=== PATIENT | female | born 1965 | race Caucasian/White ===

== ENCOUNTER 2017-06-26 08:59 | Emergency (ER) | payer BC ==
[2017-06-26 09:16] VITALS: BP 112/78
--- NOTE | 2017-06-26 09:25 | UC ---
Upper Extremity HPI - HPI Summary HPI Summary: Pt here w/ RIGHT elbow and Right shoulder pain from yesterday. Denies any injury to elbow/soulder. States she was putting on her backpack when heard a "pop" in R elbow. States she's now having pain in R elbow radiating to R shoulder. Pain worse w/ movement. Iced elbow w/ some pain relief. [ End ] - History of Current Complaint Chief Complaint: UCUpperExtremity Stated Complaint: RT ELBOW Time Seen by Provider: 06/26/17 09:23 Hx Obtained From: Patient Onset/Duration: Sudden Onset Location Of Pain: Is Diffuse Character: Sharp Aggravating Factor(s): Movement Alleviating Factor(s): Rest Associated Signs And Symptoms: Positive: Swelling - Allergies/Home Medications Allergies/Adverse Reactions: Allergies Allergy/AdvReac Type Severity Reaction Status Date / Time Tetanus Toxoid Allergy Unknown Unknown Verified 06/26/17 09:07 Reaction Details Bee Venom Allergy Shortness Verified 06/26/17 09:07 of Breath, Swelling PMH/Surg Hx/FS Hx/Imm Hx Previously Healthy: Yes - Surgical History Surgical History: Yes Surgery Procedure, Year, and Place: Hysterectomy. R TKA--10/20/15. BUNIONECTOMY. ARTHROSCOPIC R KNEE. REMOVAL OF CALCIFICATIONS FOOT - Family History Known Family History: Positive: None - Social History Occupation: Employed Full-time - teacher Lives: With Family Alcohol Use: Occasionally Substance Use Type: None Smoking Status (MU): Never Smoked Tobacco When Did the Patient Quit Smoking/Using Tobacco: 30 YRS AGO - Immunization History Most Recent Influenza Vaccination: None 2015 Review of Systems Musculoskeletal: Arthralgia, Decreased ROM All Other Systems Reviewed And Are Negative: Yes Physical Exam Triage Information Reviewed: Yes Appearance: Well-Appearing, No Pain Distress, Well-Nourished Vital Signs: Initial Vital Signs Temp 97.5 F 06/26/17 09:08 Pulse 65 06/26/17 09:08 Resp 18 06/26/17 09:08 BP 112/78 06/26/17 09:08 Pulse Ox 98 06/26/17 09:08 Vital Signs Reviewed: Yes Eye Exam: Normal ENT Exam: Normal Dental Exam: Normal Neck exam: Normal Neck: Positive: 1 Respiratory Exam: Normal Cardiovascular Exam: Normal Musculoskeletal: Positive: Strength Intact, ROM Limited @ - moderate pain lateral epicondyle to pronation and with forced pronation. mild discomfort with supination but mild and has FROM for supination . shoulder exam WNL/ FROM and right exam WNL/ FROM and full strength with flexion and extension. hand strength 5/5. medial epicondyle normal and non tender., Edema @ - right lateral epicondyle Neurological Exam: Normal Psychological Exam: Normal Skin Exam: Normal Upper Extremity Course/Dx - Course Course Of Treatment: strength and ROM essentially intact. no trauma but as the elbow was in full flexion when she moved back pack in arm and it may be partially torn . advised rest for today, ice for the 1st 48 hours and NSAIDs / APAP. Dylan bandage at this time for supportive care. if Sx persist or worsen then go to Ortho and she is agreeable - Differential Dx/Diagnosis Differential Diagnosis/HQI/PQRI: Fracture (Closed), Nursemaid's Elbow, Strain, Sprain Provider Diagnoses: lateral epicondylitis / elbow strain Discharge - Discharge Plan Condition: Good Disposition: HOME Patient Education Materials: Elbow Sprain (ED) Referrals: Alisson Richard MD [Medical Doctor] - 4 Days (If your symptoms are not improved ) CAROLINA Matta [Primary Care Provider] - If Needed
== END 2017-06-26 10:09 | disposition home or self-care (01) ==
LOC: UCCORT 08:59
DX: M77.11 Lateral epicondylitis, right elbow (principal); S46.911A Strain of unspecified muscle, fascia and tendon at shoulder and upper arm level, right arm, initial encounter; X58.XXXA Exposure to other specified factors, initial encounter; Y93.89 Activity, other specified; Y92.9 Unspecified place or not applicable; Z88.7 Allergy status to serum and vaccine; Z91.030 Bee allergy status
CPT/HCPCS: 99212; G0463

== ENCOUNTER 2018-06-23 05:53 | Inpatient (IN) | payer BC ==
[~2018-06-23 05:53] MED LIST: Buffered Lidocaine 0.9% SYRIN* 5 ML/SYR SYRINGE INTRADERM ONE
[2018-06-23] MEDS ORDERED: Famotidine IV* 10 MG/ML 2 ML (20 mg) IV ONE (06:00)
[2018-06-23] MEDS ORDERED: Dexamethasone IV* 4 MG/ML 1 ML (4 MG) IV SLOW PU ONE (06:00)
[2018-06-23] MEDS ORDERED: Famotidine IV* 10 MG/ML 2 ML (20 mg) ONE (06:10)
[2018-06-23] MEDS ORDERED: Dexamethasone IV* 4 MG/ML 1 ML (4 MG) ONE (06:10)
[2018-06-23] MEDS ORDERED: ceFAZolin 2 GM PREMIX (*) 2 GM/50 ML BAG IVPB ONE (06:10)
[2018-06-23] MEDS ORDERED: Heparin VIAL(*) 5000 UNITS/ML VIAL (FIVE THOUSAND) ONE (06:10)
[2018-06-23] MEDS ORDERED: Ropivacaine (OR use only) 2 MG/ML 10 ML ONE (07:03)
[2018-06-23] MEDS ORDERED: HYDROmorphone INJ* 0.5 MG/0.5 ML SYRINGE IV PRN ×2 (08:33→09:04)
[2018-06-23] MEDS ORDERED: fentaNYL* 50 MCG/ML 2 ML VIAL (100 MCG VIAL) IV PRN (08:33)
[2018-06-23] MEDS ORDERED: Ondansetron INJ* 2 MG/ML VIAL IV PRN ×2 (08:33→09:04)
[2018-06-23] MEDS ORDERED: DiMENhydriNATE IV* 50 MG/ML VIAL IV PUSH PRN (08:33)
[2018-06-23] MEDS ORDERED: Scopolamine 1.5 mg* PATCH TRANSDERM PRN (08:33)
[2018-06-23] MEDS ORDERED: Naloxone* 0.4 MG/ML 1 ML VIAL IV PRN (08:33)
[2018-06-23] MEDS ORDERED: diPHENhydraMINE IV* 50 MG/ML 1 ml VIAL (BENADRYL) SLOW PUSH PRN (09:04)
[2018-06-23] MEDS ORDERED: Acetaminophen ADULT LIQ* 650 MG/20.3 ML UDC PO PRN (09:04)
--- NOTE | 2018-06-23 09:09 | OP ---
Operative Report - Blank - Operative Report Date of Operation: 06/23/18 Note: Brief Operative Note Preoperative Dx: Morbid obesity. Postoperative Dx: Same. Procedure: Laparoscopic sleeve gastrectomy. Anesthesia: GET. Surgeon: MD Nathalia. Assist: MAURICIO Mcgovern and VERONA Holley. EBL: Less than 50 Fluids: 1500 LR Drains: None. Specimen: Portion of stomach. Findings: Dictated.
[2018-06-23] MEDS ORDERED: Scopolamine 1.5 mg* PATCH ONE (09:25)
[2018-06-23] MEDS ORDERED: Neostigmine Methylsulfate* 1 MG/ML 10 ML VIAL (1 mg/ml) ONE (09:49)
[2018-06-23] MEDS ORDERED: Glycopyrrolate IV* 0.2 MG/ML 1 ML VIAL ONE (09:49)
[2018-06-23] MEDS: Ketorolac INJ* 30 MG/ML 1 ML VIAL IV PRN ×2 (13:46→20:15)
--- NOTE | 2018-06-23 17:41 | PN ---
Progress Note - Progress Note Date of Service: 06/23/18 Note: Feels well. No N/V. Pain from gas. Would like to drink. Vital Signs Temp 97.5 F 06/23/18 12:39 Pulse 49 06/23/18 12:39 Resp 16 06/23/18 12:39 BP 132/74 06/23/18 12:39 Pulse Ox 94 06/23/18 12:39 NAD Abd: soft; dressings intact; min tender. Intake & Output 06/22/18 06/23/18 06/23/18 18:59 06:59 18:59 Intake Total 2950 Output Total 350 Balance 2600 Weight 220 lb Intake: IV Fluids 2950 LR 2950 Output: Urine 350 A/P: s/p LSG. Doing well postop. Will allow clears tonight.
[2018-06-23] MEDS: Famotidine IV* 10 MG/ML 2 ML (20 mg) IV SLOW PU SCH (22:06)
[2018-06-23] MEDS: Heparin VIAL(*) 5000 UNITS/ML VIAL (FIVE THOUSAND) SUBCUT SCH (22:11)
--- NOTE | 2018-06-24 02:17 | OP ---
CC: [facility]; Berta Ko MD * DATE OF OPERATION: 06/23/18 - ROOM #351 DATE OF : 65 SURGEON: Jakub Sloan MD DINING ROOM MAID: MAURICIO Sanchez ANESTHESIOLOGIST: Paul Lares MD ANESTHESIA: General endotracheal. PRE-OP DIAGNOSIS: Clinically severe obesity. POST-OP DIAGNOSIS: Clinically severe obesity. OPERATIVE PROCEDURE: Laparoscopic sleeve gastrectomy. ESTIMATED BLOOD LOSS: Minimal. IV FLUIDS: Crystalloids. SPECIMEN: Portion of stomach. DRAINS: None. COMPLICATIONS: None. COUNTS: The instrument, needle, and sponge counts were correct. DESCRIPTION OF PROCEDURE: The patient was brought to the operating room and placed on the table supine. Sequential compression devices were placed in both lower extremities. General anesthesia was administered. The abdomen was prepped and draped in the usual sterile fashion and she received appropriate intravenous antibiotics. Time-out was performed. Local anesthetic was infiltrated into the skin and soft tissue prior to making each incision. Entry into the abdomen was through a left upper quadrant incision accommodating a 5 mm optical trocar. After accessing the peritoneal cavity, carbon dioxide was insufflated to a pressure of 15 mmHg. Under direct visualization, 12 mm trocars were placed in the supraumbilical, midline and right upper quadrant. A 5 mm trocar was placed in the left upper quadrant laterally and a Sari liver retractor was placed percutaneously in the subxiphoid position to elevate the left lobe of the liver. Gastric anatomy was noted to be normal. The pylorus was identified in 6 cm proximal to this on the greater curvature. LigaSure was used to the vasculature extending this along the greater curvature all the way up to the gastroesophageal junction and as well dividing posterior short gastric vessels to completely free the fundus. After completing the mobilization of the stomach, a sleeve gastrectomy was performed over a 40-Tristanian bougie using serial firings of the EndoGIA stapler with purple reinforced cartridges. Once this specimen was transected, it was removed using endoscopic retrieval bag through an enlarged right upper quadrant incision which was subsequently closed with 0 Vicryl in an interrupted fashion to approximate the muscle in one layer. The remaining ports were removed under direct visualization as well as the liver retractor. Carbon dioxide was released. Skin incisions were closed with 4-0 Monocryl in subcuticular fashion and Steri-Strips were applied. The patient tolerated the procedure well. She was extubated and transferred to the recovery room in stable condition. [id number]/[facility] #: [id number] MTDD
[2018-06-24] MEDS: Heparin VIAL(*) 5000 UNITS/ML VIAL (FIVE THOUSAND) SUBCUT SCH (06:18)
[2018-06-24] MEDS: Ketorolac INJ* 30 MG/ML 1 ML VIAL IV PRN (06:20)
[2018-06-24] MEDS: Famotidine IV* 10 MG/ML 2 ML (20 mg) IV SLOW PU SCH (07:29)
--- NOTE | 2018-06-24 07:48 | PN ---
Progress Note - Progress Note Date of Service: 06/24/18 SOAP: Subjective: No c/o. Pain controlled. No N/V/GERD. Passing flatus. Haseeb po. Objective: Vital Signs Temp 98.7 F 06/24/18 07:26 Pulse 50 06/24/18 07:26 Resp 16 06/24/18 07:26 BP 127/67 06/24/18 07:26 Pulse Ox 95 06/24/18 07:26 Gen: NAD Abd: ND, soft, incis c/d/i; mod tender in RUQ incis. Intake & Output 06/23/18 06/24/18 06/24/18 18:59 06:59 18:59 Intake Total 2950 2117 Output Total 950 1250 Balance 1999 867 Intake: IV Fluids 2950 1937 LR 2950 1937 Oral 180 Output: Urine 950 1250 Active Medications Generic Name Dose Route Start Last Admin Trade Name Freq PRN Reason Stop Dose Admin Acetaminophen 650 mg 06/23/18 09:04 Tylenol Adult Liq* PO Q6H PRN Temp > 101 F Or Mild Pain Diphenhydramine HCl 25 mg 06/23/18 09:04 Benadryl Iv* SLOW PUSH Q6H PRN ITCHING Famotidine 20 mg 06/23/18 21:00 06/24/18 07:29 Pepcid Iv* IV SLOW PU 20 mg BID JADEN Administration Heparin Sodium (Porcine) 5,000 units 06/23/18 22:00 06/24/18 06:18 Heparin Vial(*) SUBCUT 5,000 units Q8HR JADEN Administration Hydromorphone HCl 0.5 mg 06/23/18 09:04 Dilaudid Inj* IV Q3H PRN PAIN Potassium Chloride/Dextrose 1,000 mls @ 125 mls/hr 06/24/18 09:06 D5w 1/2 Ns Kcl 20 Meq 1000 Ml* IV PER RATE JADEN Lactated Ringer's 1,000 mls @ 150 mls/hr 06/23/18 10:00 06/24/18 06:23 Lactated Ringers 1000 Ml Bag* IV 06/24/18 09:06 150 mls/hr PER RATE JADEN Administration Ketorolac Tromethamine 30 mg 06/23/18 09:04 06/24/18 06:20 Toradol Inj* IV 06/25/18 09:06 30 mg Q6H PRN Administration PAIN Ondansetron HCl 4 mg 06/23/18 09:04 Zofran Inj* IV Q6H PRN NAUSEA/VOMITING Assessment: POD#1 s/p LSG. Doing well. Plan: Clears. Possible d/c this afternoon.
[2018-06-24] MEDS ORDERED: D5W 1/2 NS KCl 20 Meq 1000 ML* 1,000 ML IV SCH (09:06)
[2018-06-24 12:37] VITALS: BP 154/78
== END 2018-06-24 14:00 | disposition home or self-care (01) | DRG 403 ==
LOC: AA 05:53 → SSU 10:34
PROVIDERS: ADMIT Surgery; ATTEND Surgery
PROC: 0DB64Z3 Excision of Stomach, Percutaneous Endoscopic Approach, Vertical (ICD-10-PCS; principal; 2018-06-23 07:30)
DX: E66.01 Morbid (severe) obesity due to excess calories (principal); Z68.36 Body mass index [BMI] 36.0-36.9, adult; E78.5 Hyperlipidemia, unspecified; M19.90 Unspecified osteoarthritis, unspecified site; G47.33 Obstructive sleep apnea (adult) (pediatric); E55.9 Vitamin D deficiency, unspecified; Z96.651 Presence of right artificial knee joint; Z88.7 Allergy status to serum and vaccine; Z88.1 Allergy status to other antibiotic agents; Z91.030 Bee allergy status; Z90.710 Acquired absence of both cervix and uterus; Z80.8 Family history of malignant neoplasm of other organs or systems; Z82.61 Family history of arthritis; Z83.49 Family history of other endocrine, nutritional and metabolic diseases; Z82.49 Family history of ischemic heart disease and other diseases of the circulatory system; Z72.89 Other problems related to lifestyle; Z87.891 Personal history of nicotine dependence
CPT/HCPCS: 88307; A9270-GY; J0690; J1100; J1644; J1885; J2710; J2795

== ENCOUNTER 2018-11-05 09:32 | Emergency (ER) | payer BC | END 2018-11-05 10:01 | disposition left against medical advice (07) | LOC: UCCORT 09:32 | DX: M54.5 Low back pain (principal); Z53.21 Procedure and treatment not carried out due to patient leaving prior to being seen by health care provider ==

== ENCOUNTER 2018-11-05 09:50 | Emergency (ER) | payer BC ==
[2018-11-05 11:46] VITALS: BP 130/91
[2018-11-05] MEDS ORDERED: Ketorolac INJ* 30 MG/ML 1 ML VIAL IM ONE (11:50)
--- NOTE | 2018-11-05 11:50 | UC ---
Back Pain HPI - HPI Summary HPI Summary: Pt reports recently lifting and 3 days ago started w/ lower back spasming. Has difficulty going from sitting to standing. Painful to sit or lay down. denies saddle paresthesias, tingling/numbness, urinary incontinence. REports to a hx of back spasms and spinal stenosis. - History of Current Complaint Stated Complaint: LOWER BACK PAIN Time Seen by Provider: 11/05/18 11:38 Hx Obtained From: Patient ?: No Timing: Constant Aggravating Factor(s): Lifting, Bending, Other - sitting Alleviating Factor(s): Rest, Other - standing - Allergies/Home Medications Allergies/Adverse Reactions: Allergies Allergy/AdvReac Type Severity Reaction Status Date / Time oxycodone Allergy Severe Hives Verified 11/05/18 11:36 tetanus toxoid, adsorbed Allergy Intermediate Swelling Verified 11/05/18 11:36 Bee Venom Allergy Severe Shortness Uncoded 11/05/18 11:36 of Breath Home Medications: Home Medications Cyclobenzaprine TAB* [Flexeril 10 MG TAB*] 10 mg PO ONCE 11/05/18 [History Confirmed 11/05/18] traZODone TAB* [Desyrel TAB*] 50 mg PO ONCE 11/05/18 [History Confirmed 11/05/18 ] PMH/Surg Hx/FS Hx/Imm Hx - Additional Past Medical History Additional PMH: spinal stenosis - Surgical History Surgical History: Yes Surgery Procedure, Year, and Place: Hysterectomy. R TKA--10/20/15. BUNIONECTOMY. ARTHROSCOPIC R KNEE. REMOVAL OF CALCIFICATIONS FOOT - Family History Known Family History: Positive: None - Social History Alcohol Use: Occasionally Substance Use Type: None Smoking Status (MU): Never Smoked Tobacco Amount Used/How Often: history of light tobacco smoker Have You Smoked in the Last Year: No When Did the Patient Quit Smoking/Using Tobacco: 30 YRS AGO - Immunization History Most Recent Influenza Vaccination: None 2016 Most Recent Pneumonia Vaccination: none Review of Systems All Other Systems Reviewed And Are Negative: Yes Constitutional: Positive: Negative Respiratory: Positive: Negative Cardiovascular: Positive: Negative Neurovascular: Positive: Other - gait normal Musculoskeletal: Positive: Arthralgia - back pain, Decreased ROM - back Neurological: Positive: Weakness. Negative: Paresthesia, Numbness Physical Exam Triage Information Reviewed: Yes Appearance: Well-Appearing Vital Signs Reviewed: Yes Respiratory Exam: Normal Cardiovascular Exam: Normal Musculoskeletal: Positive: Strength Intact - at back, No Edema, ROM Limited @ - lower back, Other: - mild tenderness at lower back on either side of spine, msk. Back Pain Course/Dx - Course Course Of Treatment: Acute lower back spasming w/ no neuro deficits in a pt. w/ known spinal stenosis. will tx spasm. advised to go to ED should new neuro symptoms develop. - Differential Dx/Diagnosis Differential Diagnosis/HQI/PQRI: Herniated Disc, Strain Provider Diagnosis: Back spasm Discharge - Sign-Out/Discharge Documenting (check all that apply): Patient Departure All imaging exams completed and their final reports reviewed: No Studies - Discharge Plan Condition: Good Disposition: HOME Prescriptions: Cyclobenzaprine (NF) [Cyclobenzaprine 5 MG (NF)] 5 mg PO TID PRN 3 Days #9 tab PRN Reason: Pain Patient Education Materials: Muscle Spasm (ED) Referrals: Berta Ko MD [Primary Care Provider] - Additional Instructions: If this becomes worse please follow up with your main doctor - Billing Disposition and Condition Condition: GOOD Disposition: Home
== END 2018-11-05 12:22 | disposition home or self-care (01) ==
LOC: UCCORT 09:50
DX: M62.830 Muscle spasm of back (principal); Z87.891 Personal history of nicotine dependence; Z88.5 Allergy status to narcotic agent
CPT/HCPCS: 99212; G0463; J1885

== ENCOUNTER 2019-09-27 15:10 | Emergency (ER) | payer BC, OTHER ==
[2019-09-27 16:02] VITALS: BP 109/64
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
== END 2019-09-27 18:01 | disposition home or self-care (01) ==
LOC: UCCORT 15:10
DX: S49.91XA Unspecified injury of right shoulder and upper arm, initial encounter (principal); S69.91XA Unspecified injury of right wrist, hand and finger(s), initial encounter; S60.041A Contusion of right ring finger without damage to nail, initial encounter; X50.9XXA Other and unspecified overexertion or strenuous movements or postures, initial encounter; Y92.219 Unspecified school as the place of occurrence of the external cause; Z88.5 Allergy status to narcotic agent; Z91.030 Bee allergy status; Z88.7 Allergy status to serum and vaccine
CPT/HCPCS: 99211; G0463